=== PATIENT | male | born 1990 | race Caucasian/White ===

== ENCOUNTER 2017-04-21 15:54 | Emergency (ER) | payer SELFPAY ==
[~2017-04-21] VITALS: Ht 175.3 cm; Wt 66.8 kg
[~2017-04-21 15:54] MED LIST: AUGMENTIN875 MG PO; NO HOME MEDS; PEN-VEE K,VEET500 MG PO; ULTRAM50 MG PO
[2017-04-21] MEDS ORDERED: MOTRIN600 MG PO (16:47)
[2017-04-21 17:04] VITALS: BP 130/88
== END 2017-04-21 17:04 | disposition home or self-care (01) ==
LOC: EME 15:54
DX: S60.221A Contusion of right hand, initial encounter (principal); Y04.2XXA Assault by strike against or bumped into by another person, initial encounter; F17.200 Nicotine dependence, unspecified, uncomplicated; Z88.6 Allergy status to analgesic agent
CPT/HCPCS: 73130; 99281; 99282